=== PATIENT | female | born 1975 | race Caucasian/White ===

== ENCOUNTER → 2018-04-03 | Outpatient (CLI) | payer OTHER ==
[~2018-04-03] MED LIST: ADVAIR HFA120 INHALA IH; BUSPAR15 MG PO; CONCERTA27 MG PO; COZAAR100 MG PO; HYDROCODON-ACE1 EAC7 PO; MULTIPLE VITAM1 EAC1 PO; PORTIA 28 DA1 TABLET PO; TOPROL XL50 MG PO; WELLBUTRIN SR150 MG PO
== END | disposition home or self-care (01) ==
LOC: CDC 15:21
DX: Z01.810 Encounter for preprocedural cardiovascular examination (principal); I10 Essential (primary) hypertension; N64.52 Nipple discharge; R92.8 Other abnormal and inconclusive findings on diagnostic imaging of breast
CPT/HCPCS: 93000

== ENCOUNTER 2018-04-07 05:53 | Day surgery (SDC) | payer OTHER ==
[~2018-04-07] VITALS: Ht 162.6 cm; Wt 106.6 kg
[~2018-04-07 05:53] MED LIST changes: -HYDROCODON-ACE1 EAC7 PO
[2018-04-07 07:19] VITALS: BP 131/85
[2018-04-07] MEDS ORDERED: HYDROCODON-ACE1 EAC7 PO (08:59)
[2018-04-07 09:50] VITALS: BP 136/82
== END 2018-04-07 10:55 | disposition home or self-care (01) ==
LOC: SDC
PROVIDERS: Surgery
PROC: 0HBX0ZX Excision of Left Nipple, Open Approach, Diagnostic (ICD-10-PCS; principal; 2018-04-07)
DX: N60.82 Other benign mammary dysplasias of left breast (principal); N60.22 Fibroadenosis of left breast; R92.8 Other abnormal and inconclusive findings on diagnostic imaging of breast; J45.909 Unspecified asthma, uncomplicated; F98.8 Other specified behavioral and emotional disorders with onset usually occurring in childhood and adolescence; F41.8 Other specified anxiety disorders; K21.9 Gastro-esophageal reflux disease without esophagitis; I10 Essential (primary) hypertension; B00.9 Herpesviral infection, unspecified; K58.9 Irritable bowel syndrome, unspecified; Z68.41 Body mass index [BMI] 40.0-44.9, adult
CPT/HCPCS: 81025; 88307; J0131; J0690; J1100; J2250; J2405; J3010; S0020